=== PATIENT | female | born 2000 | race Caucasian/White ===

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

== ENCOUNTER 2021-11-15 08:08 | Emergency (ER) | payer OTHER ==
[~2021-11-15] VITALS: Ht 149.9 cm; Wt 63.2 kg
[~2021-11-15 08:08] MED LIST: ALLE24TA7 PO; FLON1SPR; MUCI600T37 PO
[2021-11-15] MEDS ORDERED: AZUR1TAB (08:16)
[2021-11-15] MEDS ORDERED: LEXA1TAB2 (08:16)
[2021-11-15 09:46] LABS: BASO % 0.3 % (0.0-1.0); HEMATOCRIT 39.2 % (36.0-47.0); HEMOGLOBIN 12.9 g/dl (12.0-15.5); LYMPH # 0.7 10^3/uL (1.5-5.0); LYMPH % 10.6 % (24.0-44.0); MEAN CORPUSCULAR HEMOGLOBIN 29.1 pg (27.0-33.0); MEAN CORPUSCULAR HGB CONC 32.9 g/dl (32.0-36.5); MEAN CORPUSCULAR VOLUME 88.5 fl (80.0-96.0); MONO # 0.4 10^3/uL (0.0-0.8); MONO % 6.3 % (2.0-8.0); NEUTROPHILS # 5.5 10^3/uL (1.5-8.5); NEUTROPHILS % 82.5 % (36.0-66.0); PLATELET COUNT, AUTOMATED 270 10^3/uL (150-450); RED BLOOD COUNT 4.43 10^6/uL (4.00-5.40); WHITE BLOOD COUNT 6.7 10^3/uL (4.0-10.0)
[2021-11-15 10:36] LABS: ALBUMIN 3.8 GM/DL (3.2-5.2); ALT/SGPT 32 U/L (12-78); BILIRUBIN,DIRECT < 0.1 MG/DL (0.0-0.2); BILIRUBIN,TOTAL 0.2 MG/DL (0.2-1.0); BLOOD UREA NITROGEN 7 MG/DL (7-18); CALCIUM LEVEL 9.6 MG/DL (8.5-10.1); CARBON DIOXIDE LEVEL 24 MEQ/L (21-32); CHLORIDE LEVEL 102 MEQ/L (98-107); CREATININE FOR GFR 0.69 MG/DL (0.55-1.30); GLUCOSE, FASTING 108 MG/DL (70-100); HCG, SERUM QUANTITATIVE < 1.0 MIU/ML; LIPASE 130 U/L (73-393); POTASSIUM SERUM 3.9 MEQ/L (3.5-5.1); SODIUM LEVEL 133 MEQ/L (136-145); TOTAL PROTEIN 8.5 GM/DL (6.4-8.2)
[2021-11-15 12:54] VITALS: BP 110/57
== END 2021-11-15 12:56 | disposition home or self-care (01) ==
LOC: M ED 08:08
DX: K80.20 Calculus of gallbladder without cholecystitis without obstruction (principal); J06.9 Acute upper respiratory infection, unspecified; Z79.3 Long term (current) use of hormonal contraceptives; Z79.899 Other long term (current) drug therapy

== ENCOUNTER 2024-05-30 08:48 | Day surgery (SDC) | payer OTHER ==
[~2024-05-30] VITALS: Ht 149.9 cm; Wt 65.8 kg
[~2024-05-30 08:48] MED LIST changes: +AZUR1TAB; +LEXA1TAB2; +NORE1PAT TD
[2024-05-30] MEDS ORDERED: INDOCYANINE GREEN 25MG VIAL (IC-GREEN) As Ordered ONE (08:50)
[2024-05-30] MEDS ORDERED: MIDAZOLAM INJ 2MG/2ML VIAL As Ordered ONE (08:51)
[2024-05-30] MEDS ORDERED: fentaNYL 250 MCG/5 ML INJECTION As Ordered ONE (08:51)
[2024-05-30] MEDS ORDERED: ONDANSETRON 4MG 2ML VIAL As Ordered ONE (08:51)
[2024-05-30] MEDS ORDERED: KETOROLAC 30 MG/ML 1ML VIAL As Ordered ONE (08:51)
[2024-05-30] MEDS ORDERED: METOCLOPRAMIDE INJ 10MG/2ML VIAL As Ordered ONE (08:51)
[2024-05-30] MEDS ORDERED: SUGAMMADEX SODIUM 500 MG/5 ML VIAL (BRIDION) As Ordered ONE (08:52)
[2024-05-30] MEDS ORDERED: propofoL 200 MG/20 ML VIAL As Ordered ONE (08:52)
[2024-05-30] MEDS ORDERED: LIDOCAINE 2% 100MG/5ML SDV (FOR ANES.) As Ordered ONE (08:52)
[2024-05-30] MEDS ORDERED: ROCURONIUM BROMIDE 50MG/5ML VIAL As Ordered ONE (08:52)
[2024-05-30] MEDS ORDERED: ACETAMINOPHEN 1000MG/100ML IV BAG As Ordered ONE (09:09)
[2024-05-30] MEDS ORDERED: LIDOCAINE 1% SDV 5ML VIAL SC PRN (09:10)
[2024-05-30] MEDS ORDERED: LR 1,000 ML IV SCH ×2 (09:10→13:25)
[2024-05-30] MEDS: INDOCYANINE GREEN 25MG VIAL (IC-GREEN) IV ONE (12:15)
[2024-05-30] MEDS: HEPARIN SOD (PORCINE) 5000UNITS/ML 1ML VIAL/SYRINGE SQ ONE (12:27)
[2024-05-30] MEDS: ceFAZolin SOD 2 GM IV ONCE IV ONE (12:30)
[2024-05-30] MEDS ORDERED: PHENYLephrine 500MCG 5ML (100MCG/ML) SYRINGE As Ordered ONE (13:09)
[2024-05-30] MEDS ORDERED: fentaNYL 100 MCG/2 ML INJECTION IV PRN (13:25)
[2024-05-30] MEDS: HYDROMORPHONE HCL 0.5 MG/ 0.5 ML SYRINGE IV PRN (13:55)
[2024-05-30] MEDS: ONDANSETRON 4MG 2ML VIAL IV PRN (13:55)
[2024-05-30 15:15] VITALS: BP 121/64; TEMP 97.5; O2SAT 100
== END 2024-05-30 15:30 | disposition home or self-care (01) ==
LOC: M SDC 08:48
PROVIDERS: ATTEND Surgery
DX: K80.10 Calculus of gallbladder with chronic cholecystitis without obstruction (principal); K21.9 Gastro-esophageal reflux disease without esophagitis; F41.9 Anxiety disorder, unspecified; Z79.899 Other long term (current) drug therapy
CPT/HCPCS: 47562; 81025; 88304; J0131; J0665; J0690; J1100; J1171; J1885; J2250; J2371; J2405; J2765; J3010; Q9968; S2900